=== PATIENT | female | born 1965 | race American Indian/Alaskan Native ===

== ENCOUNTER 2017-12-12 14:32 | Emergency (ER) | payer SELFPAY ==
[2017-12-12 14:42] VITALS: BP 175/101
[2017-12-12] MEDS ORDERED: NORCO 5/325 PO ONE (16:38)
[2017-12-12] MEDS ORDERED: MOTRIN PO ONE (16:39)
--- NOTE | 2017-12-12 16:43 | Emergency Department Report ---
HPI - General Chief Complaint: Dental/Oral Time Seen by Provider: 12/12/17 16:30 - HPI HPI: Trinh [id number] The patient is a 52-year-old female presenting with a chief complaint of dental pain and jaw pain. The patient states she developed dental pain approximately one week ago within 2 days ago developed swelling to the left lower jaw. Patient denies fever or direct trauma. Patient complains of pain in the ears and eyes as well. Patient gives her pain is scored "50/10." Location: Left jaw Duration: [See above] Quality: Pain Severity: "50/10" Modifying factors: [see above] Context: [see above] Mode of transportation: [not driving] ED Past Medical Hx - Past Medical History Previous Medical History?: Yes Hx Hypertension: Yes - Surgical History Past Surgical History?: Yes Additional Surgical History: hysterectomy - Family History Family history: no significant - Social History Smoking Status: Current Every Day Smoker (2/3 pack per day) Substance Use Type: None (denies illicit drug use), Alcohol (occasional) - Medications Home Medications: Home Medications Medication Instructions Recorded Confirmed Last Taken Type Amoxicillin [Amoxicillin TAB] 875 mg PO BID #20 tablet 12/12/17 Unknown Rx HYDROcodone/APAP 5-325 [[place] 1 - 2 each PO Q6HR PRN #14 tablet 12/12/17 Unknown Rx 5/325] Ibuprofen [Motrin 800 MG tab] 800 mg PO Q8HR PRN #20 tablet 12/12/17 Unknown Rx Losartan [Cozaar] 50 mg PO QHS #90 tablet 12/12/17 Unknown Rx ED Review of Systems ROS: Stated complaint: MOUTH/JAW PAIN Other details as noted in HPI Constitutional: denies: fever Eyes: eye pain ENT: ear pain, dental pain Respiratory: no symptoms reported Cardiovascular: denies: chest pain Endocrine: no symptoms reported Gastrointestinal: denies: abdominal pain Genitourinary: denies: dysuria Musculoskeletal: denies: back pain Neurological: denies: headache Physical Exam - Physical Exam Vital Signs: Vital Signs 12/12/17 14:38 Temperature 98.6 F Pulse Rate 82 Respiratory 16 Rate Blood Pressure 175/101 O2 Sat by Pulse 100 Oximetry Physical Exam: GENERAL: The patient is well-developed well-nourished female lying on stretcher not appearing to be in acute distress. [] HEENT: Normocephalic. Atraumatic. Extraocular motions are intact. Patient has moist mucous membranes. Multiple dental caries. Swelling along the left mandible without overlying erythema. No gingival erythema appreciated NECK: Supple. No meningitic signs are noted. There is tender left cervical adenopathy noted. CHEST/LUNGS: Clear to auscultation. There is no respiratory distress noted. HEART/CARDIOVASCULAR: Regular. There is no tachycardia. There is no gallop rub or murmur. SKIN: There is no rash. There is no edema. There is no diaphoresis. NEURO: The patient is awake, alert, and oriented. The patient is cooperative. The patient has normal speech MUSCULOSKELETAL: There is no evidence of acute injury. ED Course Vital Signs 12/12/17 14:38 Temperature 98.6 F Pulse Rate 82 Respiratory 16 Rate Blood Pressure 175/101 O2 Sat by Pulse 100 Oximetry ED Medical Decision Making - Differential Diagnosis dental abscess Critical care attestation.: If time is entered above; I have spent that time in minutes in the direct care of this critically ill patient, excluding procedure time. ED Disposition Clinical Impression: Dental abscess, Pain, dental Disposition: DC-01 TO HOME OR SELFCARE Is pt being admited?: No Does the pt Need Aspirin: No Condition: Stable Instructions: Dental Abscess (ED) Additional Instructions: Return to the emergency department immediately should you develop worsening symptoms, fever, inability to tolerate food or liquid or any other concerns. Prescriptions: Amoxicillin [Amoxicillin TAB] 875 mg PO BID #20 tablet HYDROcodone/APAP 5-325 [[place] 5/325] 1 - 2 each PO Q6HR PRN #14 tablet PRN Reason: Pain Ibuprofen [Motrin 800 MG tab] 800 mg PO Q8HR PRN #20 tablet PRN Reason: Pain, Moderate (4-6) Losartan [Cozaar] 50 mg PO QHS #90 tablet Referrals: PRIMARY CARE, [Primary Care Provider] - 3-5 Days [facility] [Outside] - JOSE Time of Disposition: 16:47
== END 2017-12-12 16:59 | disposition home or self-care (01) ==
LOC: ED 14:32
DX: K04.7 Periapical abscess without sinus (principal); H92.03 Otalgia, bilateral; H57.13 Ocular pain, bilateral; F17.210 Nicotine dependence, cigarettes, uncomplicated; I10 Essential (primary) hypertension; Z90.710 Acquired absence of both cervix and uterus
CPT/HCPCS: 99282

== ENCOUNTER 2018-07-01 09:37 | Emergency (ER) | payer MEDICAID, OTHER ==
[2018-07-01] MEDS ORDERED: DECADRON IV ONE (11:48)
[2018-07-01] MEDS ORDERED: CLEOCIN 600 MG/50 mL 600 MG/50 ML BAG IV ONE (11:48)
[2018-07-01] MEDS ORDERED: NORCO 5/325 PO ONE (11:49)
[2018-07-01 12:24] LABS: Hematocrit 42.2 % (30.3-42.9); Hemoglobin 13.8 gm/dl (10.1-14.3); Mean Corpuscular HGB Conc 33 % (30-34); Mean Corpuscular Volume 95 fl (79-97); Red Blood Count 4.47 M/mm3 (3.65-5.03); Red Cell Distribution Width 14.8 % (13.2-15.2)
--- NOTE | 2018-07-01 12:29 | Emergency Department Report ---
ED ENT HPI - General Chief complaint: Dental/Oral Stated complaint: BAD HEADACHE Time Seen by Provider: 07/01/18 11:44 Source: patient Mode of arrival: Ambulatory Limitations: No Limitations - History of Present Illness Initial comments: PT IS A 52 YO FEMALE WHO COMES IN WITH SIGN DENTAL DISEASE OF LOWER LEFT MANDIBULAR AREA. NO FEVER. NO TRISMUS. HAS NOT SEEN DMD. CO PAIN RAD TO EAR. TAKING PO. ALSO ASKING FOR MED REFILL FOR HER BP MEDS WHICH SHES BEEN OFF A COUPLE WEEKS. NO CP. NO SOB. NO HEADACHE. MD complaint: tooth pain -: Gradual, week(s) Consistency: constant Improves with: none Worsens with: none Associated Symptoms: gum swelling, toothache - Related Data Previous Rx's Medication Instructions Recorded Last Taken Type Clindamycin [Clindamycin CAP] 300 mg PO Q8H #30 cap 07/01/18 Unknown Rx Ibuprofen [Motrin] 800 mg PO Q8HR PRN #25 tablet 07/01/18 Unknown Rx Losartan [Cozaar] 50 mg PO QHS #90 tablet 07/01/18 Unknown Rx Allergies Allergy/AdvReac Type Severity Reaction Status Date / Time No Known Allergies Allergy Verified 07/01/18 10:05 ED Dental HPI - General Chief complaint: Dental/Oral Stated complaint: BAD HEADACHE Time Seen by Provider: 07/01/18 11:44 Source: patient Mode of arrival: Ambulatory Limitations: No Limitations - Related Data Previous Rx's Medication Instructions Recorded Last Taken Type Clindamycin [Clindamycin CAP] 300 mg PO Q8H #30 cap 07/01/18 Unknown Rx Ibuprofen [Motrin] 800 mg PO Q8HR PRN #25 tablet 07/01/18 Unknown Rx Losartan [Cozaar] 50 mg PO QHS #90 tablet 07/01/18 Unknown Rx Allergies Allergy/AdvReac Type Severity Reaction Status Date / Time No Known Allergies Allergy Verified 07/01/18 10:05 ED Review of Systems ROS: Stated complaint: BAD HEADACHE Other details as noted in HPI Comment: All other systems reviewed and negative ED Past Medical Hx - Past Medical History Previous Medical History?: Yes Hx Hypertension: Yes - Surgical History Past Surgical History?: Yes Additional Surgical History: hysterectomy - Family History Family history: no significant - Social History Smoking Status: Current Every Day Smoker Substance Use Type: Alcohol - Medications Home Medications: Home Medications Medication Instructions Recorded Confirmed Last Taken Type Clindamycin [Clindamycin CAP] 300 mg PO Q8H #30 cap 07/01/18 Unknown Rx Ibuprofen [Motrin] 800 mg PO Q8HR PRN #25 tablet 07/01/18 Unknown Rx Losartan [Cozaar] 50 mg PO QHS #90 tablet 07/01/18 Unknown Rx ED Physical Exam - General Limitations: No Limitations General appearance: alert - Head Head exam: Present: normocephalic - Eye Eye exam: Present: PERRL - ENT ENT exam: Present: mucous membranes moist - Expanded ENT Exam Expanded Mouth exam: Absent: drooling, trismus, muffled voice, tongue normal, tongue elevation, laceration Teeth exam: Present: dental caries Throat exam: Negative: tonsillar erythema, tonsillomegaly, tonsillar exudate, R peritonsillar mass, L peritonsillar mass - Neck Neck exam: Present: normal inspection, full ROM, lymphadenopathy. Absent: ten derness, meningismus, thyromegaly - Respiratory Respiratory exam: Present: normal lung sounds bilaterally - Cardiovascular Cardiovascular Exam: Absent: regular rate - GI/Abdominal GI/Abdominal exam: Absent: soft - Rectal Rectal exam: Present: deferred - Extremities Exam Extremities exam: Present: normal inspection, full ROM - Back Exam Back exam: Present: normal inspection, full ROM - Neurological Exam Neurological exam: Present: alert, oriented X3, normal gait - Psychiatric Psychiatric exam: Present: normal affect, normal mood - Skin Skin exam: Present: warm, dry, intact ED Course Vital Signs 07/01/18 07/01/18 07/01/18 10:05 12:48 14:50 Temperature 98 F Pulse Rate 81 78 Respiratory 20 20 16 Rate Blood Pressure 171/107 164/100 [Right] O2 Sat by Pulse 100 100 Oximetry ED Medical Decision Making - Lab Data Result diagrams: 07/01/18 12:02 07/01/18 12:02 - Medical Decision Making Vital Signs 07/01/18 07/01/18 07/01/18 10:05 12:48 14:50 Temperature 98 F Pulse Rate 81 78 Respiratory 20 20 16 Rate Blood Pressure 171/107 164/100 [Right] O2 Sat by Pulse 100 100 Oximetry Labs 07/01/18 07/01/18 12:02 12:02 WBC 5.9 RBC 4.47 Hgb 13.8 Hct 42.2 MCV 95 MCH 31 MCHC 33 RDW 14.8 Plt Count 207 Sodium 142 Potassium 5.1 H Chloride 106.5 Carbon Dioxide 24 Anion Gap 17 BUN 6 L Creatinine 0.5 L Estimated GFR > 60 BUN/Creatinine Ratio 12 Glucose 82 Calcium 8.6 MEDICATED IN ER LABS NOTED VSS NO FEVER TAKING PO NO TRISMUS NO LUDWIGS NO PHARYNG. ABSCESS POS GING. DISEASE SIGN DIFFUSE DENTAL DISEASE DC HOME WITH DC INSTRUCTION AND DMD FOLLOW UP VSS TAKING PO Critical care attestation.: If time is entered above; I have spent that time in minutes in the direct care of this critically ill patient, excluding procedure time. ED Disposition Clinical Impression: Dental caries, Gingival disease, Medication refill, HTN (hypertension) Disposition: DC-01 TO HOME OR SELFCARE Is pt being admited?: No Does the pt Need Aspirin: No Condition: Stable Instructions: Dental Caries (ED), Hypertension (ED) Additional Instructions: med as ordered today diet as tolerated activity as tolerated hydrate well with water DMD JOSE Prescriptions: Losartan [Cozaar] 50 mg PO QHS #90 tablet Clindamycin [Clindamycin CAP] 300 mg PO Q8H #30 cap Ibuprofen [Motrin] 800 mg PO Q8HR PRN #25 tablet PRN Reason: Pain , Severe (7-10) Referrals: HAYLEE JEFFRIES JR, MD [Primary Care Provider] - 3-5 Days [facility] [Outside] - 3-5 Days [facility] [Outside] - 3-5 Days Forms: Work/School Release Form(ED) Time of Disposition: 13:36
[2018-07-01 12:43] LABS: BUN/Creatinine Ratio 12; Blood Urea Nitrogen 6 mg/dL (7-17); Calcium 8.6 mg/dL (8.4-10.2); Hemolysis Index 8
[2018-07-01 12:54] LABS: Platelet Count 207 K/mm3 (140-440)
[2018-07-01] MEDS ORDERED: CATAPRES PO ONE (14:14)
[2018-07-01 14:51] VITALS: BP 164/100
== END 2018-07-01 14:50 | disposition home or self-care (01) ==
LOC: ED 09:37
DX: K02.9 Dental caries, unspecified (principal); K05.00 Acute gingivitis, plaque induced; I10 Essential (primary) hypertension; Z76.0 Encounter for issue of repeat prescription
CPT/HCPCS: 36415; 80048; 85027; 96365; 96375; 99283; J1100